=== PATIENT | female | born 1955 | race Two or more races ===

== ENCOUNTER 2019-06-20 22:48 | Inpatient (IN) | payer BC, MEDICARE ==
[~2019-06-20] VITALS: Ht 172.7 cm; Wt 74.9 kg
--- NOTE | 2019-06-20 23:02 | PHYS DOC ---
Past History Past Medical History: Anemia, Other Adult General Chief Complaint Chief Complaint: NAUSEA/VOMITING/DIARRHEA...I ve been vomiting.....but now diarrhea.. I getting so weak..." HPI HPI Patient is a 64 year old female who presents with above hx and complaints of nausea, vomiting and diarrhea. No history of specific ill contacts. No history immunosuppression. No history of bad food intake. Does not do a flu vaccination. No history of travel outside the area. Pt. follows with [facility]. Review of Systems Review of Systems Constitutional: Subjective fever or chills [] Eyes: Denies change in visual acuity, redness, or eye pain [] HENT: Denies nasal congestion or sore throat [] Respiratory: Denies cough or shortness of breath [] Cardiovascular: No additional information not addressed in HPI [] GI: Complaints of generalized abdominal pain, nausea, vomiting, and diarrhea [] : Denies dysuria or hematuria [] Musculoskeletal: Denies back pain or joint pain [] Integument: Denies rash or skin lesions [] Neurologic: Denies headache, focal weakness or sensory changes [] Endocrine: Denies polyuria or polydipsia [] All other systems were reviewed and found to be within normal limits, except as documented in this note. Family History Family History Noncontributory Current Medications Current Medications See nursing for home meds Allergies Allergies Allergic to sulfa meds Physical Exam Physical Exam Constitutional: Moderate acute distress, non-toxic appearance. [] HENT: Normocephalic, atraumatic, bilateral external ears normal, oropharynx dry, no oral exudates, nose normal. [] Eyes: PERRLA, EOMI, conjunctiva normal, no discharge. [] Neck: Normal range of motion, no tenderness, supple, no stridor. [] Cardiovascular:Heart rate regular rhythm, no murmur [] Lungs & Thorax: Bilateral breath sounds clear to auscultation [] Abdomen: Bowel sounds hyperactive, soft, generalized tenderness, no masses, no pulsatile masses. [] Skin: Warm, dry, no erythema, no rash. [] Back: No tenderness, no CVA tenderness. [] Extremities: No tenderness, no cyanosis, no clubbing, ROM intact, no edema. [] Neurologic: Alert and oriented X 3, normal motor function, normal sensory function, no focal deficits noted. [] Psychologic: Affect anxious, judgement normal, mood normal. [] EKG EKG My interpretation EKG sinus rhythm at 63 bpm. Has mild leftward axis. No findings acute STEMI with contralateral changes.[] Radiology/Procedures Radiology/Procedures [][address] [address] IMAGING REPORT Signed PATIENT: OSITO MARRERO EACCOUNT: [id number] : 1955 LOCATION: ER AGE: 64 SEX: F EXAM STATUS: REG ER ORD. PHYSICIAN: ANA LUISA ANDERSON MD REASON: Nausea and vomiting PROCEDURE: ABDOMEN SUPINE & UPRIGHT ABDOMEN SUPINE UPRIGHT, CHEST PA LATERAL INDICATION: Nausea and vomiting. COMPARISON STUDY: None. FINDINGS: Lungs: Normal lung volume. No pulmonary mass or consolidation. The tracheobronchial tree and hilar structures are normal. Pleura: No pleural effusion or pneumothorax. Heart and Mediastinum: The cardiomediastinal silhouette is normal. The great vessels of the thorax are normal. Abdomen: Nonobstructive bowel gas pattern. No free air. Bones and Soft Tissues: Degenerative changes of the spine. S-shaped thoracolumbar scoliosis. IMPRESSION: 1. Nonobstructive bowel gas pattern. 2. No consolidation. Electronically signed by: Dulce Douglas MD (06/20/2019 11:49 PM) [id number] DICTATED AND SIGNED BY: DULCE DOUGLAS MD DATE: 06/20/19 [id number] CC: ANA LUISA ANDERSON MD; EUN PATEL MD ~ Course & Med Decision Making Course & Med Decision Making Pertinent Labs and Imaging studies reviewed. (See chart for details) Pt. Admit to Dr Berry, with plan re-hydration, supplement critical Hypokalemia. Impression: 1. Nausea vomiting diarrhea-acute gastroenteritis 2. Dehydration 3. Hypokalemia 2.6 critical 4. Elevated d-dimer 1.08 5. Microcytic hypochromic indices 73/24 6. Thrombocytopenia 134 7. Elevated glucose 120 [] Dragon Disclaimer Dragon Disclaimer This electronic medical record was generated, in whole or in part, using a voice recognition dictation system. Departure Departure: Disposition: HOME/RESIDENCE PRIOR TO ADM Condition: STABLE Referrals: EUN PATEL MD (PCP) Mireya Disclaimer This chart was dictated in whole or in part using Voice Recognition software in a busy, high-work load, and often noisy Emergency Department environment. It may contain unintended and wholly unrecognized errors or omissions. Dragon Disclaimer This chart was dictated in whole or in part using Voice Recognition software in a busy, high-work load, and often noisy Emergency Department environment. It may contain unintended and wholly unrecognized errors or omissions. ANA LUISA ANDERSON MD Jun 20, 2019 23:02
[2019-06-20] MEDS ORDERED: IV RINGERS SOLUTION,LACTATED 1,000 ML IV SCH (23:45)
--- NOTE | 2019-06-20 23:51 | RAD ---
ABDOMEN SUPINE UPRIGHT, CHEST PA LATERAL INDICATION: Nausea and vomiting. COMPARISON STUDY: None. FINDINGS: Lungs: Normal lung volume. No pulmonary mass or consolidation. The tracheobronchial tree and hilar structures are normal. Pleura: No pleural effusion or pneumothorax. Heart and Mediastinum: The cardiomediastinal silhouette is normal. The great vessels of the thorax are normal. Abdomen: Nonobstructive bowel gas pattern. No free air. Bones and Soft Tissues: Degenerative changes of the spine. S-shaped thoracolumbar scoliosis. IMPRESSION: 1. Nonobstructive bowel gas pattern. 2. No consolidation. Electronically signed by: Bear Douglas MD (06/20/2019 11:49 PM) [id number]
[2019-06-21 00:13] LABS: BASO % 0 % (0-3); EOS % 0 % (0-3); HEMATOCRIT 41.6 % (36.0-47.0); HEMOGLOBIN 13.4 g/dL (12.0-15.5); LYMPH # 0.4 x10^3/uL (1.0-4.8); LYMPH % 13 % (24-48); MEAN CORPUSCULAR HEMOGLOBIN 24 pg (25-35); MEAN CORPUSCULAR HGB CONC 32 g/dL (31-37); MEAN CORPUSCULAR VOLUME 73 fL (79-100); MONO # 0.3 x10^3/uL (0.0-1.1); MONO % 10 % (0-9); NEUT # 2.3 x10^3uL (1.8-7.7); NEUT % 78 % (31-73); PLATELET COUNT 134 x10^3/uL (140-400); RED BLOOD COUNT 5.67 x10^6/uL (3.50-5.40); RED CELL DISTRIBUTION WIDTH 13.8 % (11.5-14.5); WHITE BLOOD COUNT 2.9 x10^3/uL (4.0-11.0)
[2019-06-21 00:15] LABS: BARBITURATES NEG (NEG); BENZODIAZEPINES NEG (NEG); CANNABINOIDS NEG (NEG); COCAINE NEG (NEG); METHADONE NEG (NEG); OPIATES NEG (NEG); PHENCYCLIDINE NEG (NEG)
[2019-06-21 00:17] LABS: AMPHETAMINE/METHAMPHETAMINE NEG (NEG)
[2019-06-21 00:27] LABS: ALBUMIN 3.5 g/dL (3.4-5.0); ALBUMIN/GLOBULIN RATIO 0.9 (1.0-1.7); CALCIUM 8.8 mg/dL (8.5-10.1); CREATININE 0.9 mg/dL (0.6-1.0); DIRECT BILIRUBIN 0.1 mg/dL (0.0-0.2); GFR 62.6; MAGNESIUM 2.1 mg/dL (1.8-2.4); TOTAL BILIRUBIN 0.3 mg/dL (0.2-1.0); TOTAL PROTEIN 7.4 g/dL (6.4-8.2)
[2019-06-21 00:27] LABS: INFLUENZA A PATIENT NEGATIVE (NEGATIVE); INFLUENZA B PATIENT NEGATIVE (NEGATIVE)
[2019-06-21 00:30] LABS: POTASSIUM 2.6 mmol/L (3.5-5.1)
[2019-06-21 00:38] LABS: BACTERIA,URINE 0 /HPF (0-FEW); BILIRUBIN,URINE NEG (NEG); CLARITY,URINE HAZY; COLOR,URINE YELLOW; GLUCOSE,URINE NEG (NEG); NITRITE,URINE NEG (NEG); RBC,URINE OCC /HPF (0-2); SQUAMOUS EPITHELIAL CELL,UR MOD /LPF
--- NOTE | 2019-06-21 00:41 | EKG ---
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
[2019-06-21] MEDS ORDERED: PROCHLORPERAZINE 10 MG/2 ML VIAL. ONE (00:59)
[2019-06-21] MEDS ORDERED: POTASSIUM CHLORIDE 20MEQ 100 ML IV SCH ×2 (01:00→02:30)
[2019-06-21] MEDS ORDERED: POTASSIUM CHLORIDE 20 MEQ IV ONE (01:01)
[2019-06-21] MEDS ORDERED: POTASSIUM CHLORIDE 20 MEQ TABLET.ER. PO ONE ×2 (01:02→03:00)
[2019-06-21] MEDS ORDERED: diphenhydrAMINE 50 MG/ML VIAL ONE (01:04)
[2019-06-21] MEDS: POTASSIUM CHLORIDE 10MEQ 100 ML IV SCH ×8 (01:24→12:16)
[2019-06-21] MEDS ORDERED: PROCHLORPERAZINE 10 MG/2 ML VIAL. IV ONE (01:30)
[2019-06-21] MEDS ORDERED: diphenhydrAMINE 50 MG/ML VIAL IVP ONE (01:30)
[2019-06-21] MEDS ORDERED: ONDANSETRON PF 4 MG/2 ML VIAL. IVP PRN (02:30)
[2019-06-21] MEDS ORDERED: ACETAMINOPHEN 325 MG TABLET PO PRN (02:30)
[2019-06-21] MEDS ORDERED: ANTI-COAG MONITOR BY PHARMACY. MC PRN (03:00)
[2019-06-21] MEDS: IV RINGERS SOLUTION,LACTATED 1,000 ML IV SCH ×3 (03:09→12:30)
[2019-06-21] MEDS: ENOXAPARIN ** NOTE DOSE ** SYRINGE SQ SCH ×2 (03:15→21:08)
[2019-06-21 05:02] VITALS: BP 129/80
[2019-06-21] MEDS ORDERED: POTASSIUM CHLORIDE 10MEQ 100 ML IV SCH ×2 (05:30→06:30)
--- NOTE | 2019-06-21 07:57 | RAD ---
Bilateral lower extremity venous doppler ultrasound History: Bilateral lower extremity edema Comparison: None Findings: Multiple grayscale, color, and duplex spectral analysis sonographic images were acquired of the bilateral lower extremity veins to evaluate for the presence of DVT. There is normal phasicity. Normal compression, color-flow, and augmentation is demonstrated from the bilateral common femoral to the popliteal veins. There is normal color flow of the proximal greater saphenous and profunda femoris veins. There is normal color flow of segments of the calf veins. Impression: 1. There is no evidence of deep venous thrombosis from the bilateral common femoral to the popliteal veins. Electronically signed by: Bear Kitchen MD (06/21/2019 7:54 AM) [facility]
[2019-06-21] MEDS ORDERED: IPRATRPIUM/ALBUTEROL 0.5/2.5MG 3 ML NEBU. NEB SCH (08:00)
[2019-06-21 11:29] VITALS: BP 105/69
[2019-06-21 11:36] LABS: CREATININE 0.6 mg/dL (0.6-1.0)
--- NOTE | 2019-06-21 11:36 | HP ---
ADMIT DATE: 06/21/2019 HISTORY OF PRESENT ILLNESS: The patient is a 64-year-old female patient who presented to the Emergency Room with a complaint of recurrent bouts of nausea, vomiting that started about a week ago, has also had diarrhea last Sunday; however, has not had any further episodes of diarrhea since then. She has been also feeling dizzy and has been blacking out and yesterday, her mother insisted that she should come to the hospital, given that she has been blacking out multiple times and she apparently was seen by her primary care physician and was started on Zofran without much improvement. Nobody else in the family has similar symptoms. 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 She denied any recent travel or ill contact and was evaluated in the Emergency Room, was found to have extremely hypokalemic with serum potassium only 2.6 and she has also leukopenia and thrombocytopenia. Her D-dimer was slightly elevated at 1.08. However, her influenza A and B were negative. She was admitted and was started on IV fluid and received replacement of her potassium. PAST MEDICAL HISTORY: Essentially unremarkable. PAST SURGICAL HISTORY: Significant for total abdominal hysterectomy in 2003. ALLERGIES: SHE IS ALLERGIC TO SULFA DRUGS. MEDICATIONS: She was on Zofran that was prescribed to her by her primary care physician. She is not taking any other medication. FAMILY HISTORY: She has 1 younger sister who is healthy. Her father is alive at age of 85 and apparently healthy. Her mother is alive at the age of 82 and has hypertension, congestive heart failure and atrial fibrillation. SOCIAL HISTORY: She is single, never , has no children. She does not smoke, drink alcohol or use any recreational drugs. 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 REVIEW OF SYSTEMS: The patient denied any blurring of vision, cataract, glaucoma or macular degeneration. Denied any tinnitus, earache or sensorineural deafness. Denied any nosebleeds, stuffy nose or postnasal drip. Denied any sore throat, sore tongue, toothache, hoarseness of voice or difficulty swallowing. The patient complained of multiple episodes of nausea, vomiting. Has also episodes of diarrhea, although according to her happened only about a week ago, I am not sure how reliable is that statement. Denied any hematemesis, melena, hematochezia. Denied any dysuria, frequency or hematuria. Denied any chest pain, shortness of breath, orthopnea or paroxysmal nocturnal dyspnea. Denied any cough, phlegm or hemoptysis. Denied any chills, rigors or fever. Did complain of dizziness, lightheadedness, and apparently has had multiple blackouts. PHYSICAL EXAMINATION: GENERAL: On arrival to the Emergency Room, she looked well and was clearly in no apparent respiratory distress. There was no pallor, jaundice, cyanosis or thyromegaly. No jugular venous distention. No lower limb edema. VITAL SIGNS: Her heart rate was 71, blood pressure was 125/73, temperature was 98.6, respiratory rate was 18 and oxygen saturation was 98%. HEAD, EYES, EARS, NOSE AND THROAT: Showed normocephalic, atraumatic. NECK: Supple. HEART: Showed normal first and second heart sounds. No gallop, rub or murmur. CHEST: Clear to auscultation. No crepitation or rhonchi. ABDOMEN: Distended, soft, nontender. No guarding or rigidity. No organomegaly. All hernial orifices intact. Bowel sounds normal. NEUROLOGIC: She is awake, alert, responding appropriately. All cranial nerves intact. EXTREMITIES: She moves extremities without difficulty. LABORATORY DATA: Her lab work on arrival showed a white cell count of 2900, hemoglobin was 13, hematocrit 42, MCV 73 and platelet count of 134,000 with a manual differential showed 78% polymorphs, 13% lymphocytes and 10% monocytes. Her prothrombin time was 9.9, INR 1, aPTT was 26, and D-dimer was 1.08. Her serum sodium was 143, potassium 2.6, chloride 103, bicarbonate 29, anion gap of 11, BUN 9, creatinine 0.9, estimated GFR was 62 mL per minute. Her glucose 120, calcium was 8.8, magnesium was 2.1. Total bilirubin, AST, ALT, alkaline phosphatase were normal. CK was 74. Total protein was 7.4, albumin was 3.5. Her serum lipase was 130. Urinalysis showed the urine was yellow, hazy with a pH of 6, specific gravity of 1.015. There was moderate amount of protein. The urine was negative for glucose, trace of ketones, trace of blood, negative for nitrite. There is moderate amount of leukocyte esterase, occasional rbc's, 11-20 wbc's, no bacteria. Her influenza A and B were negative and did have a chest x-ray, which showed normal lung volumes with no pulmonary masses or consolidation. The tracheobronchial tree and hilar structures are normal, no pleural effusion or pneumothorax. The cardiomediastinal silhouette is normal. The great vessels of thorax are normal. Her abdomen x-ray showed that there is no nonobstructive bowel gas pattern, no free air. Bones and soft tissues showed degenerative changes of spine with S-shaped thoracolumbar scoliosis. ASSESSMENT AND PLAN: In summary, the patient was admitted with acute gastroenteritis, recurrent syncopal episode, severe hypokalemia. She has also elevated D-dimer. My plan is to continue with IV fluid, continue to replenish her potassium. Continue with Zofran and start her on a clear liquid diet and advance as tolerated and given that the patient had recurrent bouts of nausea, vomiting that has been going on for almost a week now, she has also weight loss of 20-25 pounds according to her and wondering about the possibility that she might have gastric outlet obstruction. I will arrange for her to have a CT scan of the chest, abdomen and pelvis with contrast and we will decide the further management accordingly. LESLIE BRAND MD DR: DAX/pasquale JOB#: [id number] / [id number]
[2019-06-21 11:38] LABS: POTASSIUM 3.9 mmol/L (3.5-5.1)
[2019-06-21 15:00] VITALS: BP 104/68
[2019-06-21] MEDS: POTASSIUM CL 40MEQ D5-0.45NACL 1,000 ML IV SCH (15:27)
[2019-06-21 19:10] VITALS: BP 100/61
[2019-06-21 22:38] VITALS: BP 98/63
[2019-06-22] MEDS: POTASSIUM CL 40MEQ D5-0.45NACL 1,000 ML IV SCH ×2 (02:50→16:47)
[2019-06-22 05:12] VITALS: BP 108/72
[2019-06-22 06:32] LABS: HEMATOCRIT 40.4 % (36.0-47.0); HEMOGLOBIN 13.1 g/dL (12.0-15.5); RED BLOOD COUNT 5.43 x10^6/uL (3.50-5.40)
[2019-06-22 06:48] LABS: ALBUMIN 2.8 g/dL (3.4-5.0); ALBUMIN/GLOBULIN RATIO 0.8 (1.0-1.7); CALCIUM 8.1 mg/dL (8.5-10.1); CREATININE 0.7 mg/dL (0.6-1.0); GFR 83.7; POTASSIUM 3.7 mmol/L (3.5-5.1); TOTAL BILIRUBIN 0.3 mg/dL (0.2-1.0); TOTAL PROTEIN 6.2 g/dL (6.4-8.2)
[2019-06-22] MEDS: ENOXAPARIN ** NOTE DOSE ** SYRINGE SQ SCH (09:00)
--- NOTE | 2019-06-22 09:58 | PN ---
DATE: 06/22/2019 SUBJECTIVE: The patient is resting, slightly propped up in bed, in no apparent distress. She is awake, alert. On questioning her, she denied any further episodes of nausea, vomiting, no more diarrhea. Denied any abdominal pain, chills, rigors, or fever. Denied any dizziness, lightheadedness, or vertigo. The nursing staff did not voice any concern and stated that she has an uneventful night. PHYSICAL EXAMINATION: GENERAL: When I examined her, she looked well and was clearly in no apparent respiratory distress, slightly pale, no jaundice, cyanosis or thyromegaly. No jugular venous distention. No lower limb edema. VITAL SIGNS: Her heart rate was 72, blood pressure was 108/72, temperature was 98.6, respiratory rate 20, and oxygen saturation was 95% on room air. HEAD, EYES, EARS, NOSE AND THROAT: Showed normocephalic, atraumatic. NECK: Supple. CARDIAC: Normal first and second heart sounds. No gallop or murmur. CHEST: Clear to auscultation. No crepitation or rhonchi. ABDOMEN: Distended, soft, nontender. NEUROLOGIC: She is awake, alert, responding appropriately. All cranial nerves intact. She moves extremities without difficulty. She ambulates without assistance or assistive devices. Her intake over the last 24 hours was 1500, no output was recorded. LABORATORY DATA: As of this morning, her white cell count was 2000, hemoglobin 13, hematocrit 40, MCV 74 and a platelet count of 129,000. Serum sodium was 144, potassium 3.7, chloride 109, bicarbonate 29, anion gap of 6, BUN 4, creatinine 0.7, estimated GFR was 84 mL per minute. Her glucose was 96, calcium was 8.1. Total bilirubin, AST, ALT, alkaline phosphatase were normal. Her total protein was 6.2, albumin 2.8. Lipase was 155. TSH was normal at 1.349. Her D-dimer was high at 1.08. Urinalysis showed moderate amount of leukocyte esterase, 11-20 wbc's, and no bacteria. Toxic screen was essentially negative. ASSESSMENT: 1. Acute gastroenteritis, resolving. 2. Hypokalemia, resolving. 3. Elevated D-dimer with recurrent syncopal episode. 4. Leukopenia and thrombocytopenia. PLAN: To arrange for her to continue with IV fluid for now. We will advance her diet. Also order a CT scan, CT angio of the chest, abdomen and pelvis and decide the further management accordingly. LESLIE BRAND MD DR: DAX/pasquale JOB#: [id number] / [id number]
[2019-06-22 10:28] VITALS: BP 105/67
[2019-06-22] MEDS ORDERED: CONTRAST GIVEN MC PRN (10:45)
[2019-06-22] MEDS ORDERED: IOHEXOL 350 MG/ML 100 ML VIAL. IV ONE (10:45)
--- NOTE | 2019-06-22 12:36 | RAD ---
CT ANGIO CHEST W ABD PEL W/ History: Shortness of breath. Nausea vomiting. Elevated d-dimer. Diarrhea. Technique: CT of the chest, abdomen and pelvis was performed with contrast. Coronal and sagittal reconstructions were performed. Exposure: One or more of the following individualized dose reduction techniques were utilized for this examination: 1. Automated exposure control 2. Adjustment of the mA and/or kV according to patient size 3. Use of iterative reconstruction technique. Comparison: None Findings: Chest: No large central or segmental pulmonary embolus. Small subsegmental pulmonary emboli within the bases is degraded by respiratory motion. No pathologic axillary, mediastinal or hilar adenopathy. No aortic aneurysm or dissection. Bilateral lower lobe consolidations and atelectasis. Bilateral upper lobe groundglass opacities. No pleural effusion. Abdomen and pelvis: The liver, spleen, adrenal glands, and pancreas are unremarkable. Nonobstructing right renal calculi. Small bilateral renal hypodensities, likely cysts although too small to further characterize. No hydronephrosis. Mild gallbladder wall thickening. No CT evidence of cholelithiasis. No pericholecystic fluid. No biliary ductal dilatation. Normal appendix. No evidence of bowel obstruction. No pathologic lymphadenopathy. No ascites. Prior hysterectomy. Bones: S-shaped curvature of the thoracolumbar spine. Sclerotic lesion within the right proximal femur and T8 vertebral body, likely bone islands. Multilevel thoracolumbar spondylosis. T12 at L1 superior endplate Schmorl's node. Impression: Chest CT: 1. No pulmonary embolism allowing for mild respiratory motion degradation. 2. Mild bilateral upper lobe peripheral groundglass opacities, may relate to infectious or inflammatory process including atypical infectious process. 3. Bilateral lower lobe consolidations, may represent atelectasis or consolidations. Abdomen and pelvis CT: 1. Gallbladder wall enhancement with borderline wall thickening. If concern for right upper quadrant pain, recommend ultrasound. 2. Nonobstructing right renal calculi. No hydronephrosis. 3. Bilateral renal hypodensities, likely cysts although too small to further characterize. Electronically signed by: Chepe Aguirre DO (06/22/2019 12:33 PM) [id number]
[2019-06-22 14:57] VITALS: BP 112/73
[2019-06-22 20:00] VITALS: BP 100/49
[2019-06-22] MEDS: ONDANSETRON PF 4 MG/2 ML VIAL. IVP PRN (20:27)
[2019-06-22] MEDS: PROCHLORPERAZINE 10 MG/2 ML VIAL. IV PRN (22:10)
[2019-06-23 05:00] VITALS: BP 112/64
[2019-06-23] MEDS: POTASSIUM CL 40MEQ D5-0.45NACL 1,000 ML IV SCH ×2 (05:38→19:39)
[2019-06-23 06:31] LABS: RED BLOOD COUNT 5.46 x10^6/uL (3.50-5.40); RED CELL DISTRIBUTION WIDTH 14.3 % (11.5-14.5); WHITE BLOOD COUNT 2.6 x10^3/uL (4.0-11.0)
[2019-06-23 06:38] LABS: CALCIUM 8.2 mg/dL (8.5-10.1); CREATININE 0.6 mg/dL (0.6-1.0); POTASSIUM 3.8 mmol/L (3.5-5.1)
[2019-06-23] MEDS: ENOXAPARIN 40 MG/0.4 ML SYRINGE. SQ SCH (08:48)
[2019-06-23 11:00] VITALS: BP 118/64
[2019-06-23 15:00] VITALS: BP 111/63
--- NOTE | 2019-06-23 19:16 | PN ---
DATE: SUBJECTIVE: The patient is resting, slightly propped up in bed, in no apparent respiratory distress. She is awake, alert. Denied any further episodes of nausea or vomiting, no diarrhea. Denied any chest pain or shortness of breath. Apparently, the abdominal ultrasound was canceled. PHYSICAL EXAMINATION: GENERAL: When I examined her, she looked well and was clearly in no apparent respiratory distress. No pallor, jaundice, cyanosis or thyromegaly. No jugular venous distention. No limb edema. VITAL SIGNS: Her heart rate was 67, blood pressure was 112/64, temperature was 99.3, respiratory rate was 20, and oxygen saturation was 96% on room air. HEAD, EYES, EARS, NOSE AND THROAT: Showed normocephalic, atraumatic. NECK: Supple. HEART: Showed normal first and second heart sounds. No gallop or murmur. CHEST: Clear to auscultation. No crepitation or rhonchi. ABDOMEN: Distended, soft, nontender. NEUROLOGIC: She is awake, alert, responding appropriately. All cranial nerves intact. She moves extremities without difficulty. She ambulates without assistance or assistive devices. Her intake over the last 24 hours was incompletely recorded. LABORATORY DATA: As of this morning, her white cell count went up to 2600, hemoglobin 13, hematocrit 40, MCV 73 and platelet count of 124,000. Her chemistry showed a serum sodium 144, potassium 3.8, chloride 109, bicarbonate 27, anion gap of 8, BUN 4, creatinine 0.6, estimated GFR was 100 mL per minute. Her glucose was 111, calcium was 8.2, magnesium 2. Total bilirubin, AST, ALT, alkaline phosphatase were normal. ASSESSMENT: 1. Acute gastroenteritis, resolving. 2. Hypokalemia, resolved. Elevated D-dimer with recurrent syncopal episode; however, her CT angio of the chest was negative. She has thrombocytopenia and leukopenia. The CT scan also showed that the patient has mild bilateral upper lobe peripheral ground glass opacities, may relate to infectious or inflammatory process including atypical infection and bilateral lower lobe consolidation represents atelectasis or consolidation. Her gallbladder also showed borderline wall thickening and we did order abdominal ultrasound that apparently was canceled. LESLIE BRAND MD DR: DAX/pasquale JOB#: [id number] / [id number]
[2019-06-23 19:30] VITALS: BP 114/63
[2019-06-23] MEDS: PROCHLORPERAZINE 10 MG/2 ML VIAL. IV PRN (20:52)
[2019-06-24 05:30] VITALS: BP 102/75
[2019-06-24 06:15] LABS: HEMATOCRIT 40.1 % (36.0-47.0); HEMOGLOBIN 13.1 g/dL (12.0-15.5); RED BLOOD COUNT 5.49 x10^6/uL (3.50-5.40); RED CELL DISTRIBUTION WIDTH 14.2 % (11.5-14.5); WHITE BLOOD COUNT 3.4 x10^3/uL (4.0-11.0)
[2019-06-24 06:30] LABS: ALBUMIN 2.9 g/dL (3.4-5.0); ALBUMIN/GLOBULIN RATIO 0.8 (1.0-1.7); CALCIUM 8.5 mg/dL (8.5-10.1); CREATININE 0.7 mg/dL (0.6-1.0); GFR 83.7; POTASSIUM 4.1 mmol/L (3.5-5.1); TOTAL BILIRUBIN 0.3 mg/dL (0.2-1.0); TOTAL PROTEIN 6.5 g/dL (6.4-8.2)
[2019-06-24] MEDS: POTASSIUM CL 40MEQ D5-0.45NACL 1,000 ML IV SCH ×2 (08:10→20:28)
[2019-06-24] MEDS: ENOXAPARIN 40 MG/0.4 ML SYRINGE. SQ SCH (08:58)
[2019-06-24 11:09] VITALS: BP 116/54
--- NOTE | 2019-06-24 11:58 | PN ---
DATE: 06/24/2019 SUBJECTIVE: The patient is resting, slightly propped up in bed, in no apparent distress. She said that she has no further episodes of nausea; however, she was unable to tolerate her full liquid diet. She has not eaten any this morning. Her liver enzymes are slightly elevated, but there is no evidence of any biliary obstruction. PHYSICAL EXAMINATION: GENERAL: When I examined her, she looked pale, but no jaundice, cyanosis or thyromegaly. No jugular venous distention. No limb edema. VITAL SIGNS: Her heart rate was 82, blood pressure 116/54, temperature was 98.3, respiratory rate was 20, and oxygen saturation was 92% on room air. HEAD, EYES, EARS, NOSE AND THROAT: Showed normocephalic, atraumatic. NECK: Supple. CARDIAC: Normal first and second heart sounds. No gallop or murmur. CHEST: Clear to auscultation. No crepitation or rhonchi. ABDOMEN: Distended, soft, nontender. No guarding or rigidity. No organomegaly. All hernial orifice intact. Bowel sounds normal. NEUROLOGIC: She is awake, alert, responding appropriately. All cranial nerves are intact. She moves extremities without difficulty. She is able to ambulate within the room without difficulty. Her intake was 1500, output was incompletely recorded. LABORATORY DATA: Showed a serum sodium 142, potassium 4.1, chloride 108, bicarbonate 28, anion gap of 6, BUN 4, creatinine 0.7, estimated GFR was 83 mL per minute, her glucose 123, calcium was 8.5. Her total bilirubin and alkaline phosphatase were normal. AST and ALT are slightly elevated. Her white cell count was 3400, hemoglobin 13, hematocrit 40, MCV 73 and platelet count of 130,000. ASSESSMENT: 1. Acute gastroenteritis, resolving. She has no further episodes of nausea, vomiting, no diarrhea. 2. Hypokalemia also resolved. Her most recent serum potassium was 4.13. 3. Leukopenia, improving. Her white cell count has risen from 2.9 to 3.4. 4. She has also thrombocytopenia. Her CT scan showed mild bilateral upper lobe ground glass and peripheral opacities that is consistent with an infectious inflammatory process including atypical infection. She is positive for COVID-19. PLAN: Plan is to continue with the IV fluid, continue with pain management and antiemetic. Continue DVT prophylaxis. We will advance her diet as tolerated. When she is stable and she is tolerating her diet, we can discharge her home. LESLIE BRAND MD DR: DAX/pasquale JOB#: [id number] / [id number]
[2019-06-24 15:00] VITALS: BP 115/54
[2019-06-24 20:00] VITALS: BP 112/69
[2019-06-24] MEDS: PROCHLORPERAZINE 10 MG/2 ML VIAL. IV PRN (21:35)
[2019-06-24] MEDS: ONDANSETRON PF 4 MG/2 ML VIAL. IVP PRN (23:32)
[2019-06-24 23:49] VITALS: BP 121/65
[2019-06-25 06:31] LABS: HEMATOCRIT 38.5 % (36.0-47.0); HEMOGLOBIN 12.5 g/dL (12.0-15.5); RED BLOOD COUNT 5.26 x10^6/uL (3.50-5.40); RED CELL DISTRIBUTION WIDTH 14.1 % (11.5-14.5); WHITE BLOOD COUNT 3.1 x10^3/uL (4.0-11.0)
[2019-06-25 06:44] LABS: ALBUMIN 2.8 g/dL (3.4-5.0); ALBUMIN/GLOBULIN RATIO 0.8 (1.0-1.7); CALCIUM 8.2 mg/dL (8.5-10.1); CREATININE 0.6 mg/dL (0.6-1.0); TOTAL BILIRUBIN 0.3 mg/dL (0.2-1.0); TOTAL PROTEIN 6.3 g/dL (6.4-8.2)
[2019-06-25] MEDS: ENOXAPARIN 40 MG/0.4 ML SYRINGE. SQ SCH (08:18)
[2019-06-25] MEDS: PROCHLORPERAZINE 10 MG/2 ML VIAL. IV PRN (08:19)
[2019-06-25 08:53] VITALS: BP 110/64
[2019-06-25] MEDS ORDERED: AZITHROMYCIN 250 MG TABLET. PO ONE ×2 (11:15→17:30)
--- NOTE | 2019-06-25 11:51 | PN ---
DATE: 06/25/2019 ATTENDING PHYSICIAN: Preston Berry MD SUBJECTIVE: The patient is comfortable. She is eating better. Her GI symptoms have subsided. She did test positive for COVID-19. She has no pulmonary symptoms at this time. She was afebrile. PHYSICAL EXAMINATION: HEENT: Head is without trauma. Pupils are reactive. Sclerae nonicteric. Oropharynx clear. NECK: Supple, no bruits. LUNGS: Otherwise clear. CARDIOVASCULAR: Showed regular heart tones. ABDOMEN: Soft, scaphoid, normal bowel sounds. No guarding or rebound tenderness. EXTREMITIES: Showed no cyanosis or edema. VITAL SIGNS: Temperature 98.2, blood pressure 110/64, oxygen saturation 92% on room air, pulse is 89 and regular. LABORATORY STUDIES: White count is up to 3100, hemoglobin 12.5 g/dL, potassium 4.0 mEq, sodium 141, creatinine is 0.6 mg/dL. ASSESSMENT: 1. This 64-year-old female presented with a viral gastroenteritis. 2. 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 She has asymptomatic COVID-19 infection. 3. Leukopenia, resolving. 4. Dehydration, improved. PLAN: 1. Advance diet as tolerated. 2. Discontinue IV fluids. 3. Empiric initiation of Plaquenil 400 b.i.d. for day #1 and then, 200 mg b.i.d. for 4 more days. 4. Zithromax. 5. Tentative plans for discharge tomorrow. She does have elderly parents at home. I recommended isolation and avoiding contact with her elderly parents for 14 days after discharge. CARLOTTA MAR MD DR: WINTER/pasquale JOB#: [id number] / [id number]
[2019-06-25] MEDS: HYDROXYCHLOROQUINE 200 MG TABLET PO SCH ×2 (13:35→21:08)
[2019-06-25 13:50] VITALS: BP 111/51
[2019-06-25 17:30] VITALS: BP 108/52
[2019-06-25] MEDS ORDERED: HYDROXYCHLOROQUINE 200 MG TABLET PO SCH (21:00)
[2019-06-25 23:48] VITALS: BP 92/51
[2019-06-26] MEDS: ENOXAPARIN 40 MG/0.4 ML SYRINGE. SQ SCH (08:22)
[2019-06-26 08:47] VITALS: BP 96/69
[2019-06-26] MEDS ORDERED: HYDROXYCHLOROQUINE 200 MG TABLET PO SCH (09:00)
--- NOTE | 2019-06-26 11:13 | DS ---
DATE OF DISCHARGE: 06/26/2019 ATTENDING PHYSICIAN: Dr. Berry. FINAL DISCHARGE DIAGNOSES: 1. Acute gastroenteritis, resolved. 2. Diarrhea, resolved. 3. Self-limiting gastroenteritis. 4. Incidental finding of COVID-19 infection. 5. Bilateral atelectasis. 6. Hypokalemia, corrected. HISTORY OF PRESENT ILLNESS: This is a 64-year-old female who works at a local [employer]. She presented to the ED on 06/20/2019 with GI symptoms, nausea, vomiting, and diarrhea. She was hypokalemic. Potassium was 2.6 mEq. Influenza A and B were negative. She was admitted for dehydration and treatment of symptomatic gastroenteritis. PHYSICAL EXAMINATION: Please see the dictated note. PERTINENT LABORATORY AND X-RAY STUDIES: The chest x-ray report is normal. She had an abdominal CT cutting at the bases of the lung. She had bilateral atelectasis and some ground glass patchy infiltrate in the upper lobe. Clinically, she was asymptomatic. Lab tests, the white count was 2900, repeated was up to 3100, hemoglobin maintained at 12.5 g/dL, potassium replaced up to 4.0 mEq, creatinine was normal at 0.6 mg/dL. Serology for COVID-19 by PCR was reported as positive. Hepatitis screen was negative. Influenza A and B were negative. COURSE IN THE HOSPITAL: The patient was admitted. She was placed in COVID-19 isolation. Her gastroenteritis resolved. Interestingly, she denied any pulmonary symptoms because of the positivity of the report as well as the abnormal CT scan. We did start her empirically on hydroxychloroquine and Zithromax. Prior to discharge, she received first day dosage of hydroxychloroquine 400 mg twice a day, Zithromax 500 mg p.o. daily. She understands the situation. She lives with her elderly parents. They have divided home. She will stay in the basement and self-quarantine from other family members. We also reported this case to the [facility] Department. They instructed us in the language and followup as well as instructions for prevention of spread. Therefore, on the sixth hospital day, she was discharged home. I wrote for 4 more days of Plaquenil 200 b.i.d. and Zithromax 500 mg p.o. daily for 4 more days. I instructed her to call her primary care physician next week at which time to discuss when she should come back for followup; most likely they wanted to stay put in her house. There is no restriction on diet. Her activities are limited and again explicit instructions printed were sent with the patient to go home for review. The patient was then discharged from our hospital in stable condition with explicit instructions and followup care. TOTAL DISCHARGE TIME SPENT: 39 minutes. CARLOTTA MAR MD DR: WINTER/pasquale JOB#: [id number] / [id number] LESLIE Lai MD
[2019-06-26 12:00] VITALS: BP 101/59
== END 2019-06-26 13:30 | disposition home or self-care (01) | DRG 178 ==
LOC: ER 22:48 → 1 SOUTH 06-21 02:00 → ICU 06-22 17:00
PROVIDERS: ADMIT Internal Medicine; ATTEND Internal Medicine
DX: U07.1 COVID-19 (principal); J98.11 Atelectasis; A08.4 Viral intestinal infection, unspecified; D69.6 Thrombocytopenia, unspecified; D72.819 Decreased white blood cell count, unspecified; E86.0 Dehydration; E87.6 Hypokalemia; R73.9 Hyperglycemia, unspecified; Z79.899 Other long term (current) drug therapy; Z82.49 Family history of ischemic heart disease and other diseases of the circulatory system; Z90.710 Acquired absence of both cervix and uterus; Z88.2 Allergy status to sulfonamides
CPT/HCPCS: 36415; 71046; 71275; 74019; 74177; 80048; 80053; 80076; 80307; 81001; 82550; 83690; 83735; 83880; 84443; 84484; 85025; 85027; 85379; 85610; 85730; 86705; 86709; 86803; 87070; 87086; 87340; 87804; 87880; 93005; 93970; 96361; 96374; 96375; J0456; J0780; J1200; J1650; J2405; J3480; J7042; J7120; Q9967; 99285-25

== ENCOUNTER → 2021-05-27 | Outpatient (CLI) | payer MEDICARE ==
--- NOTE | 2021-05-27 16:10 | RAD ---
Right lower extremity venous Doppler ultrasound History: Reason: RLE PAIN AND SWELLING / Comparison: None. Procedure: Color flow Doppler, Doppler spectral analysis, and 2D images are obtained with and without compression in the area of the common femoral vein, superficial femoral vein - femoral vein junction , main femoral vein (superficial femoral vein) and popliteal vein. Veins of the proximal calf are als o imaged. Findings: There is occlusive thrombus in the right popliteal vein with noncompressibility and lack of color lizzy w. The right posterior tibial vein is not seen. The vein could be occluded or lack of visualization c ould be technical. There is normal color flow, augmentation, and compressibility of all other visuali zed vein segments. There is subcutaneous edema of the calf. IMPRESSION: There is DVT of the right popliteal vein and possibly the right posterior tibial vein. Electronically signed by: Wesley Marie MD (05/27/2021 4:07 PM) [facility]
== END ==
LOC: US 15:27
PROVIDERS: ATTEND Physician Assistant
DX: I82.431 Acute embolism and thrombosis of right popliteal vein (principal)
CPT/HCPCS: 93971